=== PATIENT | male | born 1940 | race African-American/Black ===

== ENCOUNTER 2021-09-02 01:19 | Emergency (ER) | payer SELFPAY ==
[~2021-09-02] VITALS: Ht 172.7 cm; Wt 83.0 kg
[2021-09-02] MEDS ORDERED: NA PHOS,M-B/NA PHOS,DI-BA ENEMA 118ML PR ONE (02:30)
[2021-09-02 04:20] VITALS: BP 210/100
== END 2021-09-02 04:52 | disposition left against medical advice (07) ==
LOC: ER 01:19
DX: K59.00 Constipation, unspecified (principal); E11.9 Type 2 diabetes mellitus without complications; Z98.890 Other specified postprocedural states
CPT/HCPCS: 99283